=== PATIENT | male | born 1955 | race American Indian/Alaskan Native ===

== ENCOUNTER 2017-01-11 17:51 | Emergency (ER) | payer OTHER ==
[2017-01-11 17:59] VITALS: BP 142/81; PULSE 84; RESP 18; TEMP 98.7; O2SAT 98
--- NOTE | 2017-01-11 18:53 | RAD ---
PROCEDURE: Right Foot Radiographs. HISTORY: foot pain COMPARISON: None available. FINDINGS: BONES: No acute displaced fracture. JOINTS: No dislocation. SOFT TISSUES: Unremarkable. No evidence of radiopaque foreign body. OTHER FINDINGS: None. IMPRESSION: No acute displaced fracture, dislocation, or significant joint effusion identified. If symptoms persist, or if there is continued clinical concern, x-ray follow-up in 7-10 days should be considered.
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
== END 2017-01-11 19:00 | disposition home or self-care (01) ==
LOC: H.ER 17:51
DX: S99.921A Unspecified injury of right foot, initial encounter (principal); V03.10XA Pedestrian on foot injured in collision with car, pick-up truck or van in traffic accident, initial encounter; Y92.410 Unspecified street and highway as the place of occurrence of the external cause